=== PATIENT | male | born 1985 | race Two or more races ===

== ENCOUNTER 2020-01-11 14:37 | Outpatient (REF) | payer OTHER, SELFPAY | END 2020-01-11 14:38 | disposition home or self-care (01) | LOC: HO.LNP 14:37 | PROVIDERS: Visit Provider Internal Medicine | DX: Z20.828 Contact with and (suspected) exposure to other viral communicable diseases (principal) | CPT/HCPCS: 87635 ==

== ENCOUNTER 2020-03-21 14:13 | Outpatient (REF) | payer OTHER, SELFPAY ==
[2020-03-21 14:59] LABS: Influenza A PCR NEGATIVE (Negative); Influenza B PCR NEGATIVE (Negative); Resp Syncy Virus RNA Qual PCR NEGATIVE (Negative); SARS COV2 PCR INHOUSE NEGATIVE (Negative)
== END 2020-03-21 14:14 | disposition home or self-care (01) ==
LOC: HO.LNP 14:13
PROVIDERS: Visit Provider Internal Medicine
DX: Z20.828 Contact with and (suspected) exposure to other viral communicable diseases (principal)
CPT/HCPCS: 0241U

== ENCOUNTER 2020-10-04 10:31 | Outpatient (REF) | payer OTHER, SELFPAY ==
[2020-10-04 11:52] LABS: Influenza A PCR NEGATIVE (Negative); Influenza B PCR NEGATIVE (Negative); Resp Syncy Virus RNA Qual PCR NEGATIVE (Negative); SARS COV2 PCR INHOUSE NEGATIVE (Negative)
== END 2020-10-04 10:32 | disposition home or self-care (01) ==
LOC: HO.LNP 10:31
PROVIDERS: Visit Provider Internal Medicine
DX: Z20.822 Contact with and (suspected) exposure to COVID-19 (principal)
CPT/HCPCS: 0241U

== ENCOUNTER 2020-10-19 16:24 | Outpatient (REF) | payer OTHER, SELFPAY ==
[2020-10-19 17:14] LABS: Influenza A PCR NEGATIVE (Negative); Influenza B PCR NEGATIVE (Negative); Resp Syncy Virus RNA Qual PCR NEGATIVE (Negative); SARS COV2 PCR INHOUSE NEGATIVE (Negative)
== END 2020-10-19 16:25 | disposition home or self-care (01) ==
LOC: HO.LNP 16:24
PROVIDERS: Visit Provider Internal Medicine
DX: Z20.822 Contact with and (suspected) exposure to COVID-19 (principal)
CPT/HCPCS: 0241U

== ENCOUNTER 2020-11-14 15:59 | Outpatient (REF) | payer OTHER, SELFPAY ==
[2020-11-14 16:46] LABS: Influenza A PCR NEGATIVE (Negative); Influenza B PCR NEGATIVE (Negative); Resp Syncy Virus RNA Qual PCR NEGATIVE (Negative); SARS COV2 PCR INHOUSE NEGATIVE (Negative)
== END 2020-11-14 16:00 | disposition home or self-care (01) ==
LOC: HO.LNP 15:59
PROVIDERS: Visit Provider Internal Medicine
DX: Z20.822 Contact with and (suspected) exposure to COVID-19 (principal)
CPT/HCPCS: 0241U

== ENCOUNTER 2021-03-12 13:56 | Outpatient (REF) | payer OTHER, SELFPAY ==
[2021-03-12 14:13] LABS: MANUAL DIFF FLAG NO
[2021-03-12 14:44] LABS: Basophils Percent Auto 0.5 % (0-2); Eosinophils Percent Auto 0.7 % (0-4); Hematocrit 45.9 % (42.0-52.0); Hemoglobin 15.2 g/dl (14.0-18.0); Imm Gran Abs Auto 0.01 X10*3/uL (0.00-0.03); Imm Gran Pct Auto 0.2 % (0.0-0.4); Lymphocytes Absolute Auto 1.7 X10*3/uL (1.2-4.9); Lymphocytes Percent Auto 41.1 % (20-40); Mean Corpuscular HGB Conc 33.1 g/dl (31.0-36.0); Mean Corpuscular Hemoglobin 29.4 pg (27.0-33.0); Mean Corpuscular Volume 88.8 fL (80.0-98.0); Mean Platelet Volume 8.7 fL (9.4-12.4); Monocytes Absolute Auto 0.8 X10*3/uL (0.1-1.2); Monocytes Percent Auto 18.9 % (2-11); Neutrophils Absolute Auto 1.6 x10*3/uL (2.0-8.3); Neutrophils Percent Auto 38.6 % (45-73); Platelet Count 255 X10*3/uL (160-400); Red Blood Count 5.17 X10*6/uL (4.60-5.80); White Blood Count 4.2 X10*3/uL (4.8-10.8)
[2021-03-12 15:13] LABS: Alanine Aminotransferase 36 U/L (0-40); Albumin Level 4.2 g/dL (3.5-5.0); Alkaline Phosphatase 60 U/L (39-117); Anion Gap 10 (12-20); Aspartate Amino Transferase 28 U/L (5-37); Bilirubin Total 0.6 mg/dL (0.0-1.0); Blood Urea Nitrogen 14 mg/dL (9-16); C Reactive Protein 0.53 mg/dL (< or = 0.50); Carbon Dioxide 25 mmol/L (22-29); Chloride 109 mmol/L (96-108); Estimated Glomerular Filt Rate > 60; Glucose Random 89 mg/dL (60-115); Potassium 4.2 mmol/L (3.3-5.1); Sodium 140 mmol/L (135-145); Total Protein 7.5 g/dL (6.5-8.0)
[2021-03-12 15:48] LABS: Influenza A PCR NEGATIVE (Negative); Influenza B PCR NEGATIVE (Negative); Resp Syncy Virus RNA Qual PCR NEGATIVE (Negative); SARS COV2 PCR INHOUSE POSITIVE (Negative)
[2021-03-12 16:33] LABS: CT PCR NOT DETECTED (Not Detect.); NG PCR NOT DETECTED (Not Detect.)
[2021-03-13 03:36] LABS: Syphilis Screen Nonreactive (Nonreactive)
== END 2021-03-12 13:57 | disposition home or self-care (01) ==
LOC: HO.LAB 13:56
PROVIDERS: PCP Internal Medicine; Visit Provider Internal Medicine
DX: Z11.3 Encounter for screening for infections with a predominantly sexual mode of transmission (principal); Z20.822 Contact with and (suspected) exposure to COVID-19; R21 Rash and other nonspecific skin eruption
CPT/HCPCS: 0241U; 36415; 80053; 85025; 86140; 86780; 87491; 87591

== ENCOUNTER 2021-12-04 12:07 | Outpatient (REF) | payer OTHER, SELFPAY ==
[2021-12-04 13:46] LABS: MANUAL DIFF FLAG NO
[2021-12-04 13:59] LABS: Appearance Urine Clear; Color Urine Yellow; Glucose Urine UA Negative (Negative); Leukocyte Esterase Urine Negative (Negative); Nitrite Urine Negative (Negative); PH 6.5 (5.0-9.0); Specific Gravity - Urine 1.025 (1.005-1.025); Urine Blood Negative (Negative); Urine Ketones Negative (Negative); Urine Protein Negative (Neg-Trace)
[2021-12-04 14:01] LABS: Basophils Percent Auto 0.5 % (0-2); Eosinophils Percent Auto 0.3 % (0-4); Hematocrit 48.1 % (42.0-52.0); Imm Gran Abs Auto 0.02 X10*3/uL (0.00-0.03); Imm Gran Pct Auto 0.3 % (0.0-0.4); Lymphocytes Absolute Auto 1.5 X10*3/uL (1.2-4.9); Lymphocytes Percent Auto 24.4 % (20-40); Mean Corpuscular HGB Conc 33.3 g/dl (31.0-36.0); Mean Corpuscular Hemoglobin 29.2 pg (27.0-33.0); Mean Corpuscular Volume 87.8 fL (80.0-98.0); Mean Platelet Volume 9.1 fL (9.4-12.4); Monocytes Absolute Auto 0.5 X10*3/uL (0.1-1.2); Monocytes Percent Auto 8.6 % (2-11); Neutrophils Absolute Auto 4.1 x10*3/uL (2.0-8.3); Neutrophils Percent Auto 65.9 % (45-73); Platelet Count 327 X10*3/uL (160-400); Red Blood Count 5.48 X10*6/uL (4.60-5.80); Red Cell Distribution Width 12.6 % (11.0-16.0); White Blood Count 6.2 X10*3/uL (4.8-10.8)
[2021-12-04 14:38] LABS: Syphilis Screen Nonreactive (Nonreactive)
[2021-12-04 19:10] LABS: CT PCR NOT DETECTED (Not Detect.); NG PCR NOT DETECTED (Not Detect.)
[2021-12-05 04:45] LABS: HIV AB/AG Nonreactive (Nonreactive); HIV Num 1 0.07 S/CO (0.00-0.99)
== END 2021-12-04 12:08 | disposition home or self-care (01) ==
LOC: HO.10HDL 12:07
PROVIDERS: Visit Provider Internal Medicine
DX: Z00.00 Encounter for general adult medical examination without abnormal findings (principal); Z11.3 Encounter for screening for infections with a predominantly sexual mode of transmission; Z11.4 Encounter for screening for human immunodeficiency virus [HIV]
CPT/HCPCS: 81003; 85025; 86780; 87389; 87491; 87591

== ENCOUNTER 2021-12-05 09:34 | Outpatient (REF) | payer OTHER, SELFPAY ==
[2021-12-05 11:20] LABS: Alanine Aminotransferase 22 U/L (0-40); Albumin Level 4.5 g/dL (3.5-5.0); Alkaline Phosphatase 64 U/L (39-117); Anion Gap 15 (12-20); Aspartate Amino Transferase 20 U/L (5-37); Bilirubin Total 1.8 mg/dL (0.0-1.0); Blood Urea Nitrogen 20 mg/dL (9-16); Calcium 9.6 mg/dL (8.4-10.2); Carbon Dioxide 26 mmol/L (22-29); Chloride 103 mmol/L (96-108); Cholesterol 177 mg/dL; Estimated Glomerular Filt Rate > 60; Glucose Fasting 95 mg/dL (60-99); HDL Cholesterol 39 mg/dL; LDL Cholesterol Calculated 110 mg/dl; Potassium 4.2 mmol/L (3.3-5.1); Sodium 140 mmol/L (135-145); Total Protein 7.7 g/dL (6.5-8.0); Triglycerides 140 mg/dL
== END 2021-12-05 09:35 | disposition home or self-care (01) ==
LOC: HO.10HDL 09:34
PROVIDERS: Visit Provider Internal Medicine
DX: Z00.00 Encounter for general adult medical examination without abnormal findings (principal)
CPT/HCPCS: 36415; 80053; 80061

== ENCOUNTER 2022-10-21 09:23 | Outpatient (REF) | payer OTHER, SELFPAY ==
[2022-10-23 15:48] LABS: TS Negative Control Passed; TS Panel A 1; TS Panel B 0; TS Positive Control Passed; TSpotTB Negative (Negative)
== END 2022-10-21 09:24 | disposition home or self-care (01) ==
LOC: HO.10HDL 09:23
PROVIDERS: Visit Provider Internal Medicine
DX: Z02.1 Encounter for pre-employment examination (principal)
CPT/HCPCS: 36415; 86481

== ENCOUNTER 2022-12-10 12:21 | Outpatient (REF) | payer OTHER, SELFPAY ==
[2022-12-10 13:16] LABS: MANUAL DIFF FLAG NO
[2022-12-10 13:27] LABS: Basophils Percent Auto 0.5 % (0-2); Eosinophils Percent Auto 0.2 % (0-4); Hematocrit 47.4 % (42.0-52.0); Imm Gran Abs Auto 0.02 X10*3/uL (0.00-0.03); Imm Gran Pct Auto 0.4 % (0.0-0.4); Lymphocytes Absolute Auto 1.6 X10*3/uL (1.2-4.9); Lymphocytes Percent Auto 28.8 % (20-40); Mean Corpuscular HGB Conc 33.8 g/dl (31.0-36.0); Mean Corpuscular Hemoglobin 29.5 pg (27.0-33.0); Mean Corpuscular Volume 87.3 fL (80.0-98.0); Mean Platelet Volume 8.7 fL (9.4-12.4); Monocytes Absolute Auto 0.5 X10*3/uL (0.1-1.2); Monocytes Percent Auto 8.9 % (2-11); Neutrophils Absolute Auto 3.4 x10*3/uL (2.0-8.3); Neutrophils Percent Auto 61.2 % (45-73); Platelet Count 363 X10*3/uL (160-400); Red Blood Count 5.43 X10*6/uL (4.60-5.80); Red Cell Distribution Width 12.6 % (11.0-16.0); White Blood Count 5.5 X10*3/uL (4.8-10.8)
[2022-12-10 13:52] LABS: Alanine Aminotransferase 21 U/L (0-40); Albumin Level 4.6 g/dL (3.5-5.0); Alkaline Phosphatase 58 U/L (39-117); Anion Gap 11 (12-20); Aspartate Amino Transferase 19 U/L (5-37); Blood Urea Nitrogen 14 mg/dL (9-16); C Reactive Protein 0.12 mg/dL (< or = 0.50); Calcium 9.5 mg/dL (8.4-10.2); Carbon Dioxide 26 mmol/L (22-29); Chloride 108 mmol/L (96-108); Estimated Glomerular Filt Rate > 60; Glucose Random 101 mg/dL (60-115); Potassium 4.5 mmol/L (3.3-5.1); Sodium 140 mmol/L (135-145); Total Protein 7.9 g/dL (6.5-8.0)
== END 2022-12-10 12:22 | disposition home or self-care (01) ==
LOC: HO.10HDL 12:21
PROVIDERS: Visit Provider Internal Medicine
DX: R55 Syncope and collapse (principal); J30.1 Allergic rhinitis due to pollen
CPT/HCPCS: 36415; 80053; 82550; 85025; 86140

== ENCOUNTER 2022-12-22 07:37 | Outpatient (REF) | payer OTHER, SELFPAY ==
--- NOTE | ~2022-12-22 | CT_ITS ---
EXAMINATION: CT HEAD WITHOUT CONTRAST CLINICAL INFORMATION: Syncope. COMPARISON: None. TECHNIQUE: Contiguous axial imaging was performed from the skullbase to vertex without intravenous administration of contrast. This CT examination was performed using dose optimization techniques as appropriate, variously including the following: *Automated exposure control *Adjustment of mA and/or kV according to patient size (this includes techniques or standardized protocols for targeted exams where dose is matched to indication/reason for exam; i.e. extremities or head) *Use of iterative reconstruction technique DLP: 773 mGy-cm. FINDINGS: There is no evidence of acute intracranial hemorrhage or territorial infarction. No abnormal mass effect or midline shift is seen. Garces to white matter differentiation is well preserved. No extra-axial fluid collections are identified. The ventricles are normal in size. There is no abnormal attenuation within the brain parenchyma. The osseous structures and soft tissues are normal. The mastoid air cells and visualized portions of the paranasal sinuses are well aerated. CT/CT head/brain wo IV con IMPRESSION: No acute intracranial pathology.
== END 2022-12-22 07:38 | disposition home or self-care (01) ==
LOC: HO.CT 07:37
PROVIDERS: PCP Internal Medicine; Visit Provider Internal Medicine
DX: R55 Syncope and collapse (principal)
CPT/HCPCS: 70450

== ENCOUNTER 2022-12-26 07:45 | Outpatient (REF) | payer OTHER, SELFPAY ==
--- NOTE | 2022-12-26 07:49 | EEG_ITS ---
FINDINGS: The waking background activity consists of a well-defined, moderate voltage 10 hertz posterior alpha frequency intermixed anteriorly with low-voltage fast frequencies. Photic stimulation and hyperventilation are without activation. No focal, lateralizing, or paroxysmal discharges are seen. No sleep stages are identified. IMPRESSION: This waking EEG is within normal limits. MD SANDRA Sunshine/MARTY / [id number]
== END 2022-12-26 07:46 | disposition home or self-care (01) ==
LOC: HO.NEURO 07:45
PROVIDERS: PCP Internal Medicine; Visit Provider Internal Medicine
DX: R55 Syncope and collapse (principal)
CPT/HCPCS: 95816

== ENCOUNTER 2024-11-28 12:07 | Outpatient (AMB) | payer OTHER, SELFPAY ==
--- NOTE | 2024-11-28 12:36 | AM.OFFWIN_ITS ---
Intake Vital Signs 11/28/24 12:39 Height 6 ft 1 in Weight 222 lb BMI 29.3 BP 122/80 Blood Pressure Location Rt brachial Position Sitting Pulse 91 Pulse Source Pulse Oximeter Temp 98.2 F Temp Source Oral Pulse Oximetry (%) 98 Oxygen Delivery Method Room Air Intake Visit Reasons: EP Pain in toe Intake Note: pt presents with left great toe pain, swelling and redness Allergies No Known Allergies Allergy (Verified 11/28/24 12:40) Do you need a note to return to daycare/school/sports/work: Yes HPI HPI Comments History of Present Illness Details History of Present Illness - The patient is a 39-year-old male pres enting with pain in the left big toe. - The patient reports the onset of sympt oms with pain and discomfort in the toenail area, which he attempted to manage at home with peroxide and cleaning. - He denies any trauma or clipping of th e toenail prior to the onset of symptoms. - The patient attempted to alleviate sym ptoms by using peroxide and tweezers to clean the area, but experienced increased pain. - He reports difficulty sleeping due to the pain and walks a lot for work, which may contribute to the condition. - No prior history of similar issues or interventions noted. - He denies bleeding, discharge, fever, chills, trauma, or joint pain. Physical Exam General: Cooperative, healthy appearing, comfortable, no acute distress and well developed Orientation: Patient oriented x3 Respiratory: Normal respiratory effort and able to speak in complete sentences. Clear to auscultation bilaterally Cardiovascular: Regular rate and rhythm. Normal S1 and S2 Skin: No rashes or lesions noted Neuro: Sensation is intact. Extremities: Normal to inspection, no deformity noted. Erythema noted to the left medial great toe nailfold. TTP but no area of fluctuance noted. No streaking noted. Patient was informed and verbally consented to the use of an ambient scribe for clinic note documentation during this visit. Review of Systems Const All systems reviewed & are unremarkable except as noted in HPI and below Physical Exam Vital Signs: Last Vital Signs Temp 98.2 F 11/28/24 12:39 Pulse 91 11/28/24 12:39 BP 122/80 11/28/24 12:39 Pulse Ox 98 11/28/24 12:39 Oxygen Delivery Method Room Air 11/28/24 12:39 BMI result Body Mass Index 29.3 Assessment & Plan Assessment & Plan (1) Paronychia of great toe, left: Code(s): L03.032 - Cellulitis of left toe Plan Most likely paronychia plan - Initiate antibiotic therapy to address potential infection. - Advise soaking the affected foot in Epsom salt and warm water to reduce inflammation and promote drainage if pus develops. - Consider referral to a health care facilities inspector for possible nail resection if conservative measures fail. - Monitor for signs of infection or pus formation, and follow up if symptoms persist or worsen. - Discuss potential need for nail resection by a health care facilities inspector if conservative treatment is ineffective. Medications: New doxycycline hyclate 100 mg PO BID 14 tabs 0RF Coding Level of Care Code Est Pt Level 3 (97220) Diagnoses Paronychia of great toe, left L03.032
[2024-11-28 12:39] VITALS: BP 122/80; PULSE 91; TEMP 36.8; O2SAT 98; BMI 29.3
== END 2024-11-28 13:22 | disposition home or self-care (01) ==
PROVIDERS: PCP Internal Medicine; Visit Provider Physician Assistant Medical
DX: L03.032 Cellulitis of left toe (principal)

== ENCOUNTER 2024-12-06 08:59 | Outpatient (AMB) | payer OTHER, SELFPAY ==
[2024-12-06 08:38] VITALS: BP 120/76; PULSE 89; TEMP 36.3; O2SAT 98; BMI 29.3
--- NOTE | 2024-12-06 08:38 | MHC.PC.OV ---
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 The issue began on a , with the patient initially believing he had stubbed his toe. By Thursday, the pain had intensified to the point of affecting his sleep. He was seen at on 11/28/24. The patient was prescribed antibiotics for a week, which alleviated the pain, although some irritation remains. This is the first occurrence of an ingrown toenail for the patient. The patient has a family history of heart disease, specifically in his grandmother. He has not had blood work done in several years and plans to undergo basic lab tests, including cholesterol screening. [facility] Medical History (Updated 12/06/24 @ 09:51 by FRANKLYN Mosqueda) Health care maintenance Ingrowing toenail Routine screening for STI (sexually transmitted infection) Family History (Updated 12/06/24 @ 09:13 by Brooke Lopez MA) Mother No problems noted. Father No problems noted. Social History Housing: House Patient Tobacco Use Status: Never used Tobacco e-Cigarette/Vaping Use: Never Used service: No Current occupational status: employed Cognitive needs: No Hearing needs: No Vision needs: Yes (rx glasses) Questionnaire PHQ-9 Over the last 2 weeks, how often have you been bothered by any of the following problems? 1. Little interest or pleasure in doing things: not at all 2. Feeling down, depressed, or hopeless: not at all 3. Trouble falling or staying asleep, or sleeping too much: not at all 4. Feeling tired or having little energy: not at all 5. Poor appetite or overeating: not at all 6. Feeling bad about yourself - or that you are a failure or have let yourself or your family down: not at all 7. Trouble concentrating on things, such as reading the newspaper or watching television: not at all 8. Moving or speaking so slowly that other people could have noticed. Or the opposite - being so fidgety or restless that you have been moving around a lot more than usual: not at all 9. Thoughts that you would be better off or of hurting yourself in some way: not at all Total score: 0 Source: Developed by Drs. Toy Chamorro, Julia Branch, Morales Lora and colleagues, with an educational edilia from [employer]. Thrive Questionnaire Date Thrive assessed: 12/06/24 I am a: Patient Within the past 12 months, did the food you bought not last and you didn't have the money to get more?: Never true Within the past 12 months, did you worry whether your food would run out before you got money to buy more?: Never true Do you have trouble paying for medicines?: No Do you have trouble getting transportation to medical appointments?: No Do you have trouble paying your heating and electricity bill?: No Do you have trouble taking care of your child, family member or friend?: No Do you have trouble with day-to-day activities such as bathing, preparing meals, shopping, managing finances, etc.?: No Are you currently unemployed and looking for a job?: No Are you interested in more education?: No THRIVE Score: 0 AUDIT C Alcohol Use Questionnaire (AUDIT-C) 1. How often do you have a drink containing alcohol?: Monthly or less 2. How many drinks containing alcohol do you have on a typical day when you are drinking?: 1 or 2 3. How often do you have six or more drinks on one occasion?: Less than monthly Total Score: 2 NINO-7 AMB Questionnaire NINO-7 Date NINO - 7 assessed: 12/06/24 Feeling nervous, anxious, or on edge: 0 = Not at all Not being able to stop or control worryin = Not at all Worrying too much about different things: 0 = Not at all Trouble relaxin = Not at all Being so restless that it is hard to sit still: 0 = Not at all Becoming easily annoyed or irritable: 0 = Not at all Feeling afraid as if something awful might happen: 0 = Not at all Total NNIO-7 score (0-4 normal; 5-9 mild; 10-14 moderate; 15-21 severe): 0 Source: Developed by Drs. Toy Chamorro, Julia Branch, Morales Lora and colleagues, with an educational edilia from [employer]. Review of Systems Const Details: CONSTITUTIONAL Negative HEAD/NECK Negative RESPIRATORY Negative CARDIOVASCULAR Negative MUSCULOSKELETAL Reports pain in the toe, which has subsided with antibiotics. Denies any other musculoskeletal symptoms NEUROLOGICAL Negative PSYCHIATRIC Negative . Physical exam (Primary Care) Vital Signs: Last Vital Signs Temp 97.4 F 12/06/24 08:38 Pulse 89 12/06/24 08:38 BP 120/76 12/06/24 08:38 Pulse Ox 98 12/06/24 08:38 Oxygen Delivery Method Room Air 12/06/24 08:38 BMI result Body Mass Index 29.3 GENERAL Well developed, Well nourished, in no apparent distress HEENT Head-Normocephalic Neck- Supple, No lymphadenopathy, thyroid WNL RESPIRATORY Normal I:E, Clear to auscultation CARDIOVASCULAR Regular, rate and rhythm, No murmurs or rubs MUSCULOSKELETAL Mild ingrowing toenail lateral aspect of left treat toe, no sign of infection NEUROLOGICAL Gait normal PSYCHIATRIC Oriented to person, place and time Mood and affect WNL Appearance WNL Speech WNL Thought processes WNL Tobacco/Smoking Status: Tobacco use Status Tobacco use date assessed 12/06/24 12/06/24 08:40 Patient Tobacco Use Status Never used Tobacco 12/06/24 08:40 e-Cigarette/Vaping Use Never Used 12/06/24 08:40 PHQ-9: PHQ-9 Score PHQ-9: Total score 0 12/06/24 09:13 Thrive Assessment: Date of Thrive Assessment Date Thrive assessed 12/06/24 12/06/24 08:40 Coding Level of Care Code Established Pt Est Pt Level 3 (26922) Patient Type Established Diagnoses Ingrowing toenail L60.0 Routine screening for STI (sexually transmitted infection) Z11.3 Health care maintenance Z00.00 Time Spent (min) 25 Comment Time spent on chart review, H&P, patient education and orders Assessment & Plan Assessment & Plan (1) Ingrowing toenail: Code(s): L60.0 - Ingrowing nail Category: Medical Plan: The patient was advised to allow the toenail to grow out and to cut it straight across to prevent further ingrowth. If the condition worsens or pain returns, a referral to a residential lawn specialist for possible partial nail removal was discussed. Patient to follow up as needed if symptoms persist or worsen. (2) Routine screening for STI (sexually transmitted infection): Code(s): Z11.3 - Encounter for screening for infections with a predominantly sexual mode of transmission Category: Medical Plan: Will order screening for STI (3) Health care maintenance: Code(s): Z00.00 - Encounter for general adult medical examination without abnormal findings Category: Medical Plan: Basic lab work, including cholesterol screening, was recommended due to the lack of recent blood work and family history of heart disease. The patient was advised to undergo these tests fasting for accurate results. Plan I discussed with the patient the importance of allowing the toenail to grow out and cutting it straight across to prevent further ingrowth. We also talked about the possibility of referring to a residential lawn specialist if the condition worsens. Additionally, I recommended basic lab work, including cholesterol screening, due to the patient's family history of heart disease. Orders: Orders HIV Ab/Ag Today Z11.3 - Encounter for screening for infections with a predominantly sexual mode of transmission Complete Blood Count no Diff Today Z00.00 - Encounter for general adult medical examination without abnormal findings Comprehensive Met. Panel Today Z00.00 - Encounter for general adult medical examination without abnormal findings Hepatitis C Antibody Reflex Today Z11.3 - Encounter for screening for infections with a predominantly sexual mode of transmission Syphilis Screen Today Z00.00 - Encounter for general adult medical examination without abnormal findings CT NG by PCR Urine Today Z11.3 - Encounter for screening for infections with a predominantly sexual mode of transmission Lipid Panel Today Z00.00 - Encounter for general adult medical examination without abnormal findings TSH reflex Free T4 Today Z00.00 - Encounter for general adult medical examination without abnormal findings Patient Instructions: - Allow the toenail to grow out and cut it straight across. - Contact the clinic if the toenail becomes painful or appears infected again. - Undergo basic lab work, including cholesterol screening, preferably fasting.
== END 2024-12-06 09:33 | disposition home or self-care (01) ==
LOC: HO.HMCHD 09:00
PROVIDERS: PCP Internal Medicine; Visit Provider Physician Assistant Medical
DX: L60.0 Ingrowing nail (principal); Z11.3 Encounter for screening for infections with a predominantly sexual mode of transmission; Z00.00 Encounter for general adult medical examination without abnormal findings